=== PATIENT | female | born 1975 | race Caucasian/White ===

== ENCOUNTER 2018-07-29 19:37 | Emergency (ER) | payer SELFPAY ==
[~2018-07-29] VITALS: Ht 175.3 cm; Wt 77.3 kg
[2018-07-29 19:39] VITALS: Ht 175.3 cm; Wt 77.3 kg
[2018-07-29] MEDS ORDERED: NORCO 5/325 TAB1 TAB PO (19:58)
[2018-07-29] MEDS ORDERED: VOLTAREN75 MG PO (19:58)
[2018-07-29 21:04] VITALS: BP 128/78
== END 2018-07-29 21:05 | disposition home or self-care (01) ==
LOC: D.ER 19:37
DX: S20.212A Contusion of left front wall of thorax, initial encounter (principal); W18.2XXA Fall in (into) shower or empty bathtub, initial encounter; Y93.E1 Activity, personal bathing and showering; Y92.012 Bathroom of single-family (private) house as the place of occurrence of the external cause